=== PATIENT | female | born 1970 | race Caucasian/White ===

== ENCOUNTER 2021-10-07 14:31 | Outpatient (CLI) | payer BC, SELFPAY ==
--- NOTE | ~2021-10-07 | CT_ITS ---
EXAMINATION: CT knee LT wo con DATE: 10/07/2021 15:11 INDICATION: Left knee osteoarthritis TECHNIQUE: High resolution computed tomography (CT) of the left knee to include the left hip and ankl e was performed without intravenous contrast. Additional sagittal and coronal reconstructions were pe rformed. Automated exposure control and iterative reconstruction technique were employed. The dose-le ngth product was 1710.23 mGy-cm. COMPARISON: None FINDINGS: Bone alignment is normal. No fracture. There are postoperative changes at the proximal tibia with a 4 thin lucent tracks extending posterior superiorly from the proximal tibia, 3 arising medial to the a nterior tibial and 1 arising lateral to the anterior tibial tuberosity. The lucent tracks extend near the expected location of the footplate of the posterior cruciate ligament suggesting prior posterior cruciate ligament reconstruction. Also lateral to the anterior tibial tuberosity as well as what justin ears to be a bioabsorbable screw. Correlate with details of prior surgical history. Mild osteoarthritis of the left hip with mild posterior predominant nonuniform joint space narrowing. With subarticular sclerosis and mild cystlike changes at the medial compartment of the left knee wit h severity of joint space narrowing potentially underestimated on nonweightbearing imaging. Additiona l cortical irregularity and subarticular cystlike changes suggesting high-grade chondromalacia along the medial side of the patellar apical ridge. There are small marginal osteophytes along both the med ial and patellofemoral compartments. Small to moderate-sized left knee joint effusion. Joint space at the left ankle and visualized hindfoot appear relatively preserved. Diffuse spotty osteopenia most p rominent along the lateral femoral condyle. Visualized musculature of the left lower limb is unremark able. IMPRESSION: 1. Medial and patellofemoral compartment osteoarthritis at the right knee at least moderate severity but likely underestimated at the medial compartment and with high-grade chondral malacia in the ardon lofemoral compartment. 2. Postoperative changes at the proximal left tibia. Correlate with prior surgical history. 3. Small to moderate-sized left knee joint effusion. 4. Diffuse osteopenia. Reviewed, dictated and finalized at location A. IMPRESSION: 1. 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 2. Postoperative changes at the proximal left tibia. Correlate with prior surgi tato history. 3. Small to moderate-sized left knee joint effusion. 4. Diffuse osteopenia.
== END 2021-10-07 14:32 | disposition home or self-care (01) ==
PROVIDERS: PCP Family Medicine
DX: M17.12 Unilateral primary osteoarthritis, left knee (principal); M85.862 Other specified disorders of bone density and structure, left lower leg; M25.462 Effusion, left knee
CPT/HCPCS: 73700